=== PATIENT | female | born 1985 | race Caucasian/White ===

== ENCOUNTER 2019-06-05 07:16 | Inpatient (IN) | payer OTHER ==
[2019-06-05] MEDS ORDERED: Ondansetron PF 4 MG/2 ML Vial IVP PRN ×5 (07:47→13:10)
[2019-06-05] MEDS ORDERED: HYDROcodone/Acetaminophen 5/325 mg Tablet PO PRN ×2 (07:47)
[2019-06-05] MEDS ORDERED: Lactated Ringer's 1,000 ML IV SCH ×2 (07:47)
[2019-06-05] MEDS ORDERED: hydrALAZINE 20 MG/ML VIAL SLOW IVP PRN ×2 (07:47→12:32)
[2019-06-05] MEDS ORDERED: Penicillin G Potassium 5 MILL.UNITS in Sodium Chloride 0.9% 100 ML IVPB SCH (07:47)
[2019-06-05] MEDS ORDERED: Lidocaine 1% (PF) 30 ML VIAL SC PRN ×2 (07:47)
[2019-06-05] MEDS ORDERED: Ibuprofen 800 MG TAB PO PRN (07:47)
[2019-06-05] MEDS ORDERED: Promethazine HCl 25 MG/ML VIAL IM PRN ×5 (07:47→13:10)
[2019-06-05] MEDS ORDERED: Butorphanol Tartrate 1 MG/ML VIAL SLOW IVP PRN (07:47)
[2019-06-05] MEDS ORDERED: NS / Oxytocin 40 units/1000ml 1,000 ML IV PRN ×2 (07:47)
[2019-06-05] MEDS ORDERED: Fentanyl 4 mcg/Bup 0.1% Cadd 100 ML ONE (08:00)
[2019-06-05] MEDS ORDERED: NS / Oxytocin 40 units/1000ml 1,000 ML ONE (08:01)
[2019-06-05] MEDS ORDERED: Lidocaine 1% (PF) 30 ML VIAL ONE (08:01)
[2019-06-05 08:04] LABS: Mean Corpuscular HGB CONC 33.5 g/dL (32.0-36.0); Mean Corpuscular Hemoglobin 29.3 pg (27.0-31.0); Mean Corpuscular Volume 87.6 fL (78.0-98.0); Platelet Count 230 thou/uL (130-400); RBC Distribution Width 12.7 % (11.5-14.5); White Blood Cell (WBC) Count 10.5 thou/uL (4.8-10.8)
[2019-06-05] MEDS: hydrALAZINE 20 MG/ML VIAL SLOW IVP PRN ×2 (08:05→08:21)
[2019-06-05] MEDS ORDERED: Labetalol HCl 100 MG/20 ML VIAL ONE (08:22)
[2019-06-05] MEDS: Labetalol HCl 100 MG/20 ML VIAL SLOW IVP PRN ×3 (08:26→09:02)
--- NOTE | 2019-06-05 08:31 | PDOC.FPROB ---
Addendum entered and electronically signed by Jyoti Aceves MD 06/05/19 09:08 : Add to A/P: 5. Hx of IUFD at 24 wga, Trisomy 18 -Carrier screen negative 6. Interrupted PNC -No PNC for past 4 months -3T labs repeated Original Note: FMR OB H&P: HPI - History of Present Illness Chief Complaint: CTX Indentification: at 38.1 wga here for CTX History of Present Illness: 34 yo at 38.1 wga here for CTX. Was being followed by Ana María Cormier but stopped PNC 4 weeks ago so care was transferred to us. Patient came to L&D with CTX. Was found to be 5-6cm dilated. Also found to have elevated BPs in 160s. Denies MIRANDA, vision changes, chest pain, abd pain. History reviewed shows +THC but denies recent use. Current smoker. 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 denies: chest pain Respiratory: denies: cough Gastrointestinal: denies: abdominal pain, cramping, nausea Genitourinary (Female): denies: vaginal bleeding Musculoskeletal: denies: pain, tenderness, swelling Neurologic: denies: seizures, weakness Integumentary: denies: itching, hair changes FMR OB H&P: Vital Signs - Maternal Vital signs: Vital Signs - First Documented Pulse BP 121 H 167/103 H 06/05/19 08:05 06/05/19 08:05 - Heart Tones Baseline: 120 Variability: moderate Deceleration: absent Category: category 1 [place] contractions every: 2-3 min FMR OB H&P: Physical Exam - Physical Exam General: NAD Deviation from normal: flat affect HEENT: normocephalic and atraumatic, EOMI, MMM, conjunctiva clear, no scleral icterus, grossly normal vision Neck: FROM, trachea midline Heart: RRR, normal S1/S2, no murmurs/rubs/gallops General: CTAB, no respiratory distress Abdomen: gravid Musculoskeletal: pulses present, FROM in all four extremities Skin: capillary refill <2 seconds, no jaundice Lymphatic: no purpura, no petechia Psychiatric: other (flat affect) - Pelvic Exam Vulva: normal hair distribution SVE: FMR OB H&P: Results - Labs Lab results: Laboratory Results - last 24 hr 06/05/19 07:52 WBC 10.5 RBC 4.10 L Hgb 12.0 Hct 35.9 L MCV 87.6 MCH 29.3 MCHC 33.5 RDW 12.7 Plt Count 230 MPV 9.0 FMR OB H&P: A/P - Problem List (1) Multigravida in third trimester Current Visit: Yes Status: Acute Code(s): Z34.83 - ENCOUNTER FOR SUPRVSN OF NORMAL , THIRD TRIMESTER (2) Tetrahydrocannabinol (THC) use disorder, mild, abuse Current Visit: Yes Status: Acute Code(s): F12.10 - CANNABIS ABUSE, UNCOMPLICATED (3) History of IUFD Current Visit: Yes Status: Acute Code(s): Z87.59 - PERSONAL HISTORY OF COMP OF PREG, CHLDBRTH AND THE PUERP Discussion: Date/Time: 06/05/19 0829 1. Multigravida at 38wga, active labor -, Cat I, will break water -CTX q2-3 min -Continue with active labor management -GBS unknown-swab obtained but will ppx treat 2. PIH -Pt with unknown h/o of PIH -200s/100s, will give hydralazine & labetalol -PreE workup -Since term will go ahead and induce labor 3. Hx of THC use in -Denies current use but will order UDS -Pending results may need to get CM on board 4.Tobacco abuse in -Will discuss cessation This H&P was discussed with Dr. Martinez who agree with the above documentation and plan. Addendum - Attending - Attending Attestation Date/Time: 06/05/19 0687 I personally evaluated the patient and discussed the management with Dr. Aceves. I agree with the History, Examination, Assessment and Plan documented above with any addition or exceptions noted below. Multiple severe range BPs requiring multiple doses of Hydralazine and Labetalol. Will start MgSO4. UDS + for amphetamines and cannabanoids. Will place case management consult. Will notify Konstantin.
[2019-06-05 08:36] LABS: Syphilis Antibody Nonreactive (Nonreactive); Syphilis Antibody Index 0.02 S/CO (<1.00 Non-Reactive)
[2019-06-05 08:37] LABS: HBSAg Index 0.21 S/CO (0-0.99); HIV (1/2) Antibody/Antigen Non-Reactive (NonReactive); HIV 1/2 INDEX 0.13 S/CO (<1.00); Hep B Surf Ag Non-Reactive S/CO (NonReactive)
[2019-06-05 08:52] LABS: ALT (SGPT) 8 U/L (8-55); AST (SGOT) 11 U/L (5-34); Albumin 3.1 g/dL (3.5-5.0); Alkaline Phosphatase 195 U/L (40-110); Anion Gap 13 mmol/L (10-20); BUN (Urea Nitrogen) 6 mg/dL (7.0-18.7); Bilirubin, Total 0.2 mg/dL (0.2-1.2); Calc. Creatinine Clearance 0 mL/min (70-130); Calcium 8.8 mg/dL (7.8-10.44); Carbon Dioxide 21 mmol/L (22-29); Chloride 107 mmol/L (98-107); Estimated GFR-MDRD Greater than 90; Globulin 2.6 g/dL (2.4-3.5); Glucose 97 mg/dL (70-105); Potassium 3.9 mmol/L (3.5-5.1); Protein, Total 5.7 g/dL (6.0-8.3); Sodium 137 mmol/L (136-145)
[2019-06-05 09:22] LABS: Amphetamine Detected (NotDetected); Barbiturates Screen Not Detected (NotDetected); Benzodiazepine Screen Not Detected (NotDetected); Cocaine Metabolite Screen Not Detected (NotDetected); Medtox Control Line Valid? VALID (VALID); Medtox Reader # READER 4; Methadone Not Detected (NotDetected); Methamphetamine Not Detected (NotDetected); Opiate Screen Not Detected (NotDetected); Oxycodone Screen Not Detected (NotDetected); Phencyclidine (PCP) Not Detected (NotDetected); THC/Cannabinoid Screen Detected (NotDetected); Tricyclic Screen Not Detected (NotDetected)
[2019-06-05 09:23] LABS: Creatinine, Urine 168.89 mg/dL (47-110)
[2019-06-05] MEDS ORDERED: Calcium Gluc 4.6 MEQ/10 ML (100 MG/ML) SLOW IVP PRN (09:24)
[2019-06-05 09:25] VITALS: BMI 30.8
[2019-06-05] MEDS ORDERED: Magnesium Sulfate 20 gm/500 ml 20 GM/500 ML BAG ONE (09:25)
[2019-06-05] MEDS ORDERED: Magnesium Sulfate 20 GM/WATER 500 ML BAG IVPB SCH (09:30)
[2019-06-05] MEDS ORDERED: Magnesium Sulfate 20 gm/500 ml 20 GM/500 ML BAG IVPB SCH (09:30)
--- NOTE | 2019-06-05 10:23 | PDOC.BPN ---
- Brief Progress Note Started pushing with patient when check was complete however due to poor maternal effort and fetus not tolerating pushing will allow laboring down for 30 minutes as long as strip is reassuring and then will try pushing again. Continue current management at this time.
[2019-06-05] MEDS ORDERED: NS w/ Oxytocin 10 units 0 ML ONE (10:55)
[2019-06-05] MEDS ORDERED: NS w/ Oxytocin 10 units 500 ML IV SCH (11:00)
[2019-06-05] MEDS ORDERED: MORPHINE 5 MG/10 ML PF VIAL ONE (11:55)
[2019-06-05] MEDS ORDERED: PROPOFOL 20 ML ONE (11:56)
[2019-06-05 12:00] LABS: Actual Bicarbonate (HCO3v) 25 mEq/L (22-28); Base Excess -4.3 mEq/L (-2.0 to +3.0); Base Excess (BEa) -5.9 mEq/L (-2.0 to +3.0)
[2019-06-05 12:01] LABS: pH (Cord, venous) 7.22 (7.32-7.43)
[2019-06-05] MEDS ORDERED: Ketorolac Tromethamine 30 MG/ML VIAL ONE (12:06)
[2019-06-05] MEDS ORDERED: diphenhydrAMINE 50 MG/ML VIAL ONE (12:06)
[2019-06-05] MEDS ORDERED: Ondansetron PF 4 MG/2 ML Vial ONE (12:06)
[2019-06-05] MEDS ORDERED: Dexamethasone 4 mg/ml Vial ONE (12:06)
[2019-06-05] MEDS ORDERED: EPHEDRINE 25 MG/5 ML SYRINGE ONE ×3 (12:06→12:29)
[2019-06-05] MEDS ORDERED: PHENYLEPHRINE-NS 100 MCG/ML 10 ML SYRINGE ONE (12:14)
[2019-06-05] MEDS ORDERED: Simethicone Chewable 80 MG TAB PO PRN (12:32)
[2019-06-05] MEDS ORDERED: Lanolin Ointment 7 GM TUBE TOP PRN (12:32)
[2019-06-05] MEDS ORDERED: Varicella virus, LIVE 0.5 ML VIAL SC ONE (12:32)
[2019-06-05] MEDS ORDERED: Measles/Mumps/Rubella 10 MCG/0.5 ML VIAL SC ONE (12:32)
[2019-06-05] MEDS ORDERED: Acetaminophen 500 MG TAB PO PRN (12:32)
[2019-06-05] MEDS ORDERED: diphenhydrAMINE 25 MG CAP PO PRN (12:32)
[2019-06-05] MEDS ORDERED: Adacel (T-DAP) 0.5 ML SYRINGE IM ONE (12:32)
[2019-06-05] MEDS ORDERED: Misoprostol 200 MCG TAB PR PRN (12:32)
--- NOTE | 2019-06-05 12:37 | PDOC.OPDEL ---
OB Operative/Delivery Note Delivery Dr/Surgeon: Ivan Assist: Logan Aceves Pre-Delivery Diagnosis: active labor, non-reassuring tracing Procedure/Post Delivery Dx: primary low transverse CS Anesthesia: other (general) - Findings A Sex: female Weight: 7 lb 3.381 oz - 1 min: 8 - 5 min: 9 - Additional Findings/Plan Placenta delivered: spontaneous findings: low transverse hysterotomy with extension (left angle extension inferiorly), normal uterus, normal tubes, normal ovaries Post delivery plan: recovery in LICU
[2019-06-05] MEDS ORDERED: NS / Oxytocin 40 units/1000ml 1,000 ML IV SCH (12:45)
--- NOTE | 2019-06-05 12:45 | PDOC.BPN ---
- Brief Progress Note Late entry: Patient 10/100/0 after expectant management for 30 minutes. Extended bradycardia down to 60s with pushing but no descent in station beyond +1 and recovery in heart rate only to 90s. Patient was counseled on proceeding with a primary LTCS for non-reassuring status and agreed. Patient rechecked in OR x 2 but still remained 0 to +1 station. Decision was made to proceed with PLTCS with GETA. See op note for details.
[2019-06-05] MEDS ORDERED: Oxytocin 10 UNITS/ML VIAL ONE ×2 (12:52→18:13)
[2019-06-05] MEDS ORDERED: Succinylcholine Chloride 20 MG/ML 10 ml SYRINGE FS ONE (12:52)
[2019-06-05] MEDS ORDERED: PROPOFOL 200 MG/20 ML VIAL ONE (12:52)
[2019-06-05] MEDS ORDERED: Lactated Ringer's 500 ML IV PRN (13:08)
[2019-06-05] MEDS ORDERED: diphenhydrAMINE 50 MG/ML VIAL IVP PRN ×2 (13:08→13:10)
[2019-06-05] MEDS ORDERED: Naloxone HCl 0.4 mg/ml Vial IVP PRN ×4 (13:08→13:10)
[2019-06-05] MEDS ORDERED: Acetaminophen 325 MG TAB PO PRN (13:08)
[2019-06-05] MEDS ORDERED: EPHEDRINE 25 MG/5 ML SYRINGE SLOW IVP PRN (13:08)
[2019-06-05] MEDS ORDERED: Meperidine HCl/PF 25 MG/ML VIAL SLOW IVP PRN (13:10)
[2019-06-05] MEDS ORDERED: Ketorolac Tromethamine 30 MG/ML VIAL IVP PRN (13:10)
[2019-06-05] MEDS ORDERED: Naloxone HCl 0.4 mg/ml Vial IV PRN (13:10)
[2019-06-05] MEDS ORDERED: Ondansetron HCl/PF 4 MG/2 ML Vial IVP PRN (13:10)
[2019-06-05] MEDS ORDERED: Promethazine HCl 25 MG SUPP PR PRN (13:10)
[2019-06-05] MEDS ORDERED: L&D-Morphine 4 MG/ML VIAL SLOW IVP PRN (13:10)
[2019-06-05] MEDS ORDERED: HYDROmorphone 2 MG/ML VIAL SLOW IVP PRN (13:10)
[2019-06-05] MEDS ORDERED: Communication Order-Pharmacy FS SCH ×2 (13:15)
[2019-06-05] MEDS ORDERED: Fentanyl 4 mcg/Bupivacaine 0.1% Cassette 100 ML EPIDURAL SCH (13:15)
[2019-06-05] MEDS ORDERED: Ibuprofen 800 MG TAB PO SCH (14:00)
--- NOTE | 2019-06-05 17:32 | OP ---
DATE OF PROCEDURE: 06/05/2019 PREOPERATIVE DIAGNOSES: 1. Term intrauterine . 2. Active labor. 3. Non-reassuring heart tones. 4. Arrest of descent. 5. Positive urine drug screen. POSTOPERATIVE DIAGNOSES: 1. Term intrauterine . 2. Active labor. 3. Non-reassuring heart tones. 4. Arrest of descent. 5. Positive urine drug screen. PROCEDURE PERFORMED: Primary low-transverse section. MOBILE THERAPIST: Jyoti Aceves MD ANESTHESIA: General endotracheal. COMPLICATIONS: None. QUANTITATIVE BLOOD LOSS: 765ml INDICATIONS FOR PROCEDURE: The patient was admitted in active labor and progressed to 10/100/0. Attempts were made to push; however, the fetus had prolonged deep variables to the 60s with pushing with very little movement in station. We opted for expectant management for 30 minutes to see if her contractions would bring the baby down. However, after that time, she was still at 0 station. Attempts were made to push with very poor maternal effort and no descent in station. The fetus had prolonged bradycardia down to the 60s with recovery to the 90s over approximately 10 minutes, and the patient was counseled to proceed with primary low-transverse . The patient eventually agreed and was taken to the operating room for a primary low-transverse . She was rechecked twice while in the operating room awaiting for anesthesia, but still remained at 0 station. DESCRIPTION OF PROCEDURE: The patient was taken to the operating room, where general anesthesia was obtained without difficulty. She was prepared and draped in normal sterile fashion in the dorsal supine position with leftward tilt. A Pfannenstiel skin incision was made with a scalpel and carried down to the underlying layer of fascia. The fascia was incised in midline and extended laterally with Womack scissors. The rectus muscles were dissected off the fascia sharply. The peritoneum was identified and entered bluntly. This was extended superiorly and inferiorly with good visualization of the bladder. An Gerald O retractor was placed in the abdomen, and the lower uterine segment was incised in a transverse fashion with scalpel. The incision was extended with cephalocaudal traction. The 's arm delivered immediately, and the infant's head was delivered atraumatically. The nose and mouth were suctioned with bulb suction. The cord was clamped and cut. The infant was handed off to the waiting NICU team. Cord gas was collected. Cord blood was obtained. The placenta was removed spontaneously, and the uterine cavity was cleaned of all clots and debris. An extension of the left angle inferiorly was noted and appeared to include the uterine artery, and an O'leary stitch was performed with good hemostasis. The hysterotomy was repaired in a running locked fashion with 0 Monocryl in two layers with good hemostasis noted. Floseal was placed along the hysterotomy repair. The abdomen was irrigated. The Gerald retractor was removed. Good hemostasis was noted at that time. The fascia was repaired in a running fashion with 0 PDS. The subcutaneous tissue was reapproximated with plain gut, and the skin was reapproximated with 4 -0 Monocryl. The patient tolerated the procedure well. Sponge, lap, and needle counts were correct x2. The patient was taken to recovery room in stable condition. Job ID: [id number] MTDD
[2019-06-05] MEDS ORDERED: Fentanyl 100 MCG/2 ML VIAL ONE ×2 (18:13→18:16)
[2019-06-05] MEDS ORDERED: KETAMINE 100 MG/ML (5ML VIAL) ONE (18:16)
[2019-06-05] MEDS ORDERED: Bicitra 30 ML UDCUP ONE (18:16)
[2019-06-05] MEDS ORDERED: Midazolam HCl 5 mg/5 ml Vial ONE (18:16)
[2019-06-05] MEDS ORDERED: Midazolam HCl 2 mg/2 ml Vial ONE (18:16)
[2019-06-06] MEDS: Penicillin G 2.5 MILL.units 2.5 MILL.UNITS in Premix Bag 1 BAG IVPB SCH ×3 (04:36→14:03)
[2019-06-06] MEDS: Lactated Ringer's 1,000 ML IV SCH ×2 (04:39→13:56)
[2019-06-06] MEDS: Ferrous Sulfate 325 MG TAB PO SCH ×2 (04:40→13:57)
[2019-06-06] MEDS: Docusate Calcium (SURFAK) 240 MG CAP PO SCH ×2 (04:40→13:57)
[2019-06-06 06:04] LABS: Hemoglobin 8.9 g/dL (12.0-16.0); Mean Corpuscular HGB CONC 34.1 g/dL (32.0-36.0); Mean Corpuscular Hemoglobin 30.2 pg (27.0-31.0); Mean Corpuscular Volume 88.7 fL (78.0-98.0); Mean Platelet Volume 8.9 fL (7.4-10.4); Platelet Count 229 thou/uL (130-400); RBC Distribution Width 12.8 % (11.5-14.5); Red Blood Cell (RBC) Count 2.94 mill/uL (4.20-5.40); White Blood Cell (WBC) Count 17.1 thou/uL (4.8-10.8)
[2019-06-06] MEDS ORDERED: Bicitra 30 ML UDCUP ONE (07:00)
[2019-06-06] MEDS ORDERED: Midazolam HCl 2 mg/2 ml Vial ONE (07:00)
[2019-06-06] MEDS ORDERED: KETAMINE 100 MG/ML (5ML VIAL) ONE (07:00)
[2019-06-06] MEDS ORDERED: Fentanyl 100 MCG/2 ML VIAL ONE (07:00)
[2019-06-06] MEDS ORDERED: Midazolam HCl 5 mg/5 ml Vial ONE (07:00)
--- NOTE | 2019-06-06 08:18 | PDOC.PP ---
Post Progress Note Post Day #: 1 Subjective: Patient doing well, no complaints this morning. Pain well controlled. [place] in place, non-ambulatory. PO intake tolerated: yes Ambulation: no Vital Signs (12 hours) Pulse BP 06/06/19 04:38 86 165/86 H Weight Weight 209 lb - Physical Examination General: NAD Respiratory: non-labored breathing Abdominal: lochia (normal), no distention, appropriately TTP Fundus firm & at: umbilicus Skin: no rash Deviation from normal: Dressing in place with old blood at midline Neurological: no gross focal deficits Psychiatric: A&Ox3, normal affect Result Diagrams: 06/06/19 05:44 06/05/19 07:52 Additional Labs: Post Labs Blood Type O POSITIVE 06/05/19 09:29 Hep Bs Antigen Non-Reactive S/CO (NonReactive) 06/05/19 07:52 (1) Multigravida in third trimester Code(s): Z34.83 - ENCOUNTER FOR SUPRVSN OF NORMAL , THIRD TRIMESTER Status: Acute (2) Tetrahydrocannabinol (THC) use disorder, mild, abuse Code(s): F12.10 - CANNABIS ABUSE, UNCOMPLICATED Status: Acute (3) History of IUFD Code(s): Z87.59 - PERSONAL HISTORY OF COMP OF PREG, CHLDBRTH AND THE PUERP Status: Acute - Assessment/Plan 34 y/o s/p PLTCS for FHRA, doing well. On MgSO4 for Preeclampsia, BPs improved to normal/mild range and none requiring treatment. Routine postop day 1 orders after MgSO4 d/c. Case management consulted.
[2019-06-06] MEDS: Prenatal Vitamin 1 TAB PO SCH (13:57)
[2019-06-06] MEDS ORDERED: Ibuprofen 800 MG TAB PO SCH (22:00)
[2019-06-07] MEDS: Docusate Calcium (SURFAK) 240 MG CAP PO SCH ×2 (00:04→09:28)
[2019-06-07] MEDS: Lactated Ringer's 1,000 ML IV SCH ×2 (00:04→09:27)
[2019-06-07] MEDS: Ferrous Sulfate 325 MG TAB PO SCH ×2 (00:04→09:28)
--- NOTE | 2019-06-07 07:07 | PDOC.PP ---
Post Progress Note Post Day #: 2 PO intake tolerated: yes Flatus: yes Ambulation: yes Vital Signs (12 hours) Temp Pulse Resp BP Pulse Ox 06/07/19 00:14 98.4 F 106 H 18 134/83 06/06/19 20:10 98.8 F 101 H 17 114/72 100 06/06/19 20:00 100 Weight Weight 209 lb - Physical Examination General: NAD Cardiovascular: no m/r/g, RRR Respiratory: clear to auscultation bilaterally Abdominal: + bowel sounds, no distention Skin: CS incision dry & intact, no rash Psychiatric: A&Ox3 Result Diagrams: 06/06/19 05:44 06/05/19 07:52 Additional Labs: Post Labs Blood Type O POSITIVE 06/05/19 09:29 Hep Bs Antigen Non-Reactive S/CO (NonReactive) 06/05/19 07:52 - Assessment/Plan doing well baby staying per cps pt desires dc bp have normalized. ok for dc home this pm at 1500
[2019-06-07 08:17] VITALS: BP 159/104; TEMP 98.1
[2019-06-07] MEDS: Prenatal Vitamin 1 TAB PO SCH (09:27)
--- NOTE | 2019-06-09 07:00 | PQF ---
Fabiola Live DANIEL D MD [id number] CLINICAL DOCUMENTATION CLARIFICATION FORM: POST DISCHARGE Addendum to original discharge summary date: ____ Late entry note date: __ DATE: 06/09/2019 ATTN: Tommie Olvera Please exercise your independent, professional judgment in responding to the clarification form. Clinical indicators are provided on the bottom of this form for your review Please check appropriate box(s): [ ] Acute blood loss anemia [ ] Post-op anemia related to acute blood loss [ ] Chronic Anemia related to [ ] Other condition: [ ] Unable to determine Present on Admission (POA): [ ] Yes [ ] No [ ] Unable to determine For continuity of documentation, please document condition throughout progress notes and discharge summary. Thank You. CLINICAL INDICATORS - SIGNS / SYMPTOMS / LABS Laboratory 06/04 RBC 4.10, Hgb 12.0, Hct 35.9 Laboratory 06/05 RBC 2.94, Hgb 8.9, Hct 26.0 ABG 06/04 Base Excess -5.9, 3, pH 7.214, PCO2 52.4 VBG 06/04 - Base Excess -4.3, HCO3 25, pH 7.22, PCO2 61.5 Vital signs 06/04 BP 167/103, Pulse 121, Resp 18 Operative report p1 06/04 Quantitative blood loss 765ml RISK FACTORS H&P p2 06/04 38.1 WGA H&P p2 06/04 Current smoker H&P p5 06/04 THC use disorder, mild, abuse Operative report p1 06/04 s/p Low transverse CS TREATMENTS: MAY 30 IVF NS 1L MAY 30 Ferrous Sulfate 325 mg po Respiratory Panel 05/07 Oxygen 2L Collected 06/04 Hematology monitoring (This form is maintained as a part of the permanent medical record) 2014 [employer]. All Rights Reserved [email or web address]
== END 2019-06-07 11:10 | disposition home or self-care (01) | DRG 788 ==
LOC: L&D/OP 07:16 → L&D 08:17 → 3SW 06-06 13:58
PROVIDERS: ADMIT Obstetrics & Gynecology; ATTEND Obstetrics & Gynecology
PROC: 10D00Z1 Extraction of Products of Conception, Low, Open Approach (ICD-10-PCS; principal; 2019-06-05)
DX: O13.4 Gestational [pregnancy-induced] hypertension without significant proteinuria, complicating childbirth (principal); O99.323 Drug use complicating pregnancy, third trimester; Z37.0 Single live birth; Z3A.38 38 weeks gestation of pregnancy; F12.10 Cannabis abuse, uncomplicated; O99.333 Smoking (tobacco) complicating pregnancy, third trimester; F17.200 Nicotine dependence, unspecified, uncomplicated; O32.4XX0 Maternal care for high head at term, not applicable or unspecified; O76 Abnormality in fetal heart rate and rhythm complicating labor and delivery; Z88.1 Allergy status to other antibiotic agents
CPT/HCPCS: 36415; 51702; 80053; 80306; 82570; 82805; 84156; 85027; 86762; 86780; 86850; 86900; 86901; 87340; 87389; 88307; 99285; J0360; J0595; J1100; J1200; J1885; J2001; J2250; J2274; J2405; J2540; J2590; J2704; J3010; J3475; J3490

== ENCOUNTER 2021-09-14 23:29 | Emergency (ER) | payer OTHER ==
[2021-09-15 00:09] LABS: #Eosinphils 0.7 thou/uL (0.0-0.7); #Lymphocytes 2.8 thou/uL (1.20-3.40); #Monocytes 0.5 thou/uL (0.11-0.59); #Neutrophils 6.8 thou/uL (1.40-6.50); %Basophils 0.3 % (0.0-1.0); %Lymphocytes 26.2 % (21.0-51.0); %Monocytes 4.8 % (0.0-10.0); %Neutrophils 62.7 % (42.0-75.0); Hemoglobin 13.4 g/dL (12.0-16.0); Mean Corpuscular HGB CONC 32.4 g/dL (32.0-36.0); Mean Corpuscular Hemoglobin 29.1 pg (27.0-31.0); Mean Corpuscular Volume 89.8 fL (78.0-98.0); Mean Platelet Volume 7.3 fL (7.4-10.4); Platelet Count 273 thou/uL (130-400); RBC Distribution Width 12.9 % (11.5-14.5); White Blood Cell (WBC) Count 10.8 thou/uL (4.8-10.8)
[2021-09-15] MEDS ORDERED: Ketorolac Tromethamine 30 MG/ML VIAL ONE (00:09)
[2021-09-15] MEDS ORDERED: Ondansetron PF 4 MG/2 ML Vial ONE (00:09)
[2021-09-15 00:30] LABS: ALT (SGPT) 13 U/L (8-55); AST (SGOT) 13 U/L (5-34); Albumin 4.1 g/dL (3.5-5.0); Alkaline Phosphatase 79 U/L (40-110); Anion Gap 13 mmol/L (10-20); BUN (Urea Nitrogen) 15 mg/dL (7.0-18.7); Bilirubin, Total 0.4 mg/dL (0.2-1.2); Calc. Creatinine Clearance 0 mL/min (70-130); Calcium 9.3 mg/dL (7.8-10.44); Carbon Dioxide 22 mmol/L (22-29); Chloride 108 mmol/L (98-107); Globulin 2.7 g/dL (2.4-3.5); Glucose 102 mg/dL (70-105); Lipase 19 U/L (8-78); Potassium 3.6 mmol/L (3.5-5.1); Protein, Total 6.8 g/dL (6.0-8.3); Sodium 139 mmol/L (136-145)
[2021-09-15 01:44] LABS: Bilirubin Negative (Negative); Blood, Urine Negative (Negative); Clarity Clear (Clear); Glucose, Urine (Dipstick) Normal (Negative); Ketone, Urine Negative (Negative); Leukocyte Negative Leu/uL (Negative); Nitrite Negative (Negative); Protein, Urine (Dipstick) 30 mg/dL (Neg-Trace); RBC/HPF 0-3 HPF (0-3); Squamous Epithelial 0-3 HPF (0-3); Urobilinogen Normal mg/dL (Less than 2); WBC/HPF 0-3 HPF (0-3); pH, Urine 5.5 (5.0-9.0)
[2021-09-15 01:47] LABS: Bacteria/HPF Rare-Few HPF (None Seen)
== END 2021-09-15 01:24 | disposition home or self-care (01) ==
LOC: ERS 23:29
DX: K80.20 Calculus of gallbladder without cholecystitis without obstruction (principal); R11.2 Nausea with vomiting, unspecified; I10 Essential (primary) hypertension; F17.290 Nicotine dependence, other tobacco product, uncomplicated
CPT/HCPCS: 36415; 76705; 80053; 81003; 81015; 83690; 85025; 96374; 96375; J1885; J2405

== ENCOUNTER 2022-06-02 17:16 | Outpatient (CLI) | payer OTHER ==
[2022-06-02 17:52] LABS: #Basophils 0.1 10x3/uL (0.0-0.2); #Eosinphils 0.4 10x3/uL (0.0-0.5); #Monocytes 0.5 10x3/uL (0.0-1.1); #Neutrophils 5.5 10x3/uL (1.5-8.4); %Basophils 0.5 % (0.0-2.0); %Eosinophils 4.6 % (0.0-6.0); %Monocytes 4.9 % (0.0-10.0); %Neutrophils 60.6 % (40.0-75.0); Hemoglobin 14.2 g/dL (12.0-15.5); Mean Corpuscular HGB CONC 32.8 g/dL (32.0-36.0); Mean Corpuscular Volume 88.5 fl (81.6-98.3); Mean Platelet Volume 9.8 fl (7.4-10.4); Platelet Count 328 10x3/uL (150-450); RBC Distribution Width 12.6 % (11.5-14.5); Red Blood Cell (RBC) Count 4.89 10x6/uL (3.90-5.03); White Blood Cell (WBC) Count 9.1 10x3/uL (3.5-10.5)
[2022-06-02 18:02] LABS: ALT (SGPT) 17 U/L (8-55); AST (SGOT) 14 U/L (5-34); Albumin 4.6 g/dL (3.5-5.0); Alkaline Phosphatase 87 U/L (40-110); Anion Gap 13 mmol/L (10-20); BUN (Urea Nitrogen) 13 mg/dL (7.0-18.7); Bilirubin, Total 0.4 mg/dL (0.2-1.2); Calc. Creatinine Clearance 0 mL/min (70-130); Calcium 9.2 mg/dL (7.8-10.44); Carbon Dioxide 23 mmol/L (22-29); Chloride 107 mmol/L (98-107); Estimated GFR 86; Globulin 2.4 g/dL (2.4-3.5); Glucose 102 mg/dL (70-105); Potassium 4.1 mmol/L (3.5-5.1); Sodium 139 mmol/L (136-145)
== END 2022-06-02 17:17 | disposition home or self-care (01) ==
LOC: LABBT 17:16
PROVIDERS: ATTEND Specialist
DX: Z01.818 Encounter for other preprocedural examination (principal); K80.20 Calculus of gallbladder without cholecystitis without obstruction
CPT/HCPCS: 80053; 85025; 93005; 93010

== ENCOUNTER 2022-06-05 11:42 | Day surgery (SDC) | payer OTHER ==
[2022-06-03 13:11] VITALS: BMI 36.0
[2022-06-05] MEDS ORDERED: Ketorolac Tromethamine 30 MG/ML VIAL ONE (12:24)
[2022-06-05] MEDS ORDERED: Acetaminophen 500 MG TAB ONE (12:24)
[2022-06-05] MEDS ORDERED: Levofloxacin 500 mg/D5W 100 ml Premix Bag ONE (12:42)
[2022-06-05] MEDS ORDERED: Midazolam HCl 2 mg/2 ml Vial ONE (12:43)
[2022-06-05] MEDS ORDERED: Bupivacaine/Epinephrine 0.25% 30 ML VIAL ONE (12:43)
[2022-06-05] MEDS ORDERED: fentaNYL PF 100 MCG/2 ML SYRINGE ONE (12:51)
[2022-06-05] MEDS ORDERED: HYDROmorphone 0.5 MG/0.5 ML SYRINGE ONE (12:51)
[2022-06-05] MEDS ORDERED: PROPOFOL 200 MG/20 ML VIAL ONE (13:07)
[2022-06-05] MEDS ORDERED: Rocuronium Bromide 10 MG/ML (10ML VIAL) ONE (13:07)
[2022-06-05] MEDS ORDERED: Dexamethasone 20 MG/5 ML VIAL ONE (13:07)
[2022-06-05] MEDS ORDERED: Lidocaine 1% PF 5 ML VIAL ONE (13:07)
[2022-06-05] MEDS ORDERED: Glycopyrrolate 0.2 MG/ML 5 ML SYRINGE ONE (13:07)
[2022-06-05] MEDS ORDERED: Ondansetron PF 4 MG/2 ML Vial ONE ×2 (13:07→14:16)
[2022-06-05] MEDS ORDERED: NEOSTIGMINE 3 MG/3 ML SYR 3 MG/3 ML SYRINGE ONE (13:07)
[2022-06-05] MEDS ORDERED: Promethazine HCl 25 MG/ML VIAL ONE (14:30)
== END 2022-06-05 16:05 | disposition home or self-care (01) ==
LOC: SDC 11:42
PROVIDERS: ATTEND Specialist
PROC: 0FT44ZZ Resection of Gallbladder, Percutaneous Endoscopic Approach (ICD-10-PCS; principal; 2022-06-05)
DX: K80.10 Calculus of gallbladder with chronic cholecystitis without obstruction (principal); K82.8 Other specified diseases of gallbladder; Z79.899 Other long term (current) drug therapy; Z88.1 Allergy status to other antibiotic agents; Z87.891 Personal history of nicotine dependence
CPT/HCPCS: 88304; C1889; J1100; J1170; J1885; J1956; J2250; J2405; J2550; J2704